=== PATIENT | male | born 1960 | race Caucasian/White ===

== ENCOUNTER → 2019-02-10 | Emergency (ER) | payer BC, OTHER ==
[~2019-02-10] MED LIST: Bacitracin 1 PK ONE; Cephalexin 250 MG CAP ONE; Lidocaine 1% PF 5 ML VIAL ONE; Lidocaine 1% w/Epinephrine 1:100K 30 ML VIAL ONE
== END ==
LOC: BURERS 16:06
DX: S11.91XA Laceration without foreign body of unspecified part of neck, initial encounter (principal); E78.5 Hyperlipidemia, unspecified; I10 Essential (primary) hypertension; W25.XXXA Contact with sharp glass, initial encounter
CPT/HCPCS: 12002; J2001

== ENCOUNTER 2021-05-17 13:12 | Emergency (ER) | payer BC ==
[2021-05-17 13:51] LABS: Bilirubin Negative (Negative); Blood, Urine Large (Negative); Clarity Cloudy (Clear); Glucose, Urine (Dipstick) Negative (Negative); Ketone, Urine Negative (Negative); Leukocyte Large (Negative); Nitrite Positive (Negative); Protein, Urine (Dipstick) > or equal to 300 mg/dL (Neg-Trace); Urobilinogen 0.2 mg/dL (Less than 2); pH, Urine 5.5 (5.0-9.0)
[2021-05-17 14:02] LABS: RBC/HPF 21-50 HPF (0-3)
[2021-05-17 14:03] LABS: Bacteria/HPF 1+ HPF (None Seen); Red Blood Cell Cast 0-3 LPF (None Seen); Squamous Epithelial 0-3 HPF (0-3); Transitional Epithelial 0-3 HPF (None Seen); WBC/HPF Greater than 50 HPF (0-3); White Blood Cell Cast 0-3 LPF (None Seen)
[2021-05-17] MEDS ORDERED: cefTRIAXone\\ROCEPHIN 2 GM VIAL ONE (14:39)
[2021-05-17] MEDS ORDERED: Sodium Chloride 0.9% 100 ML ONE (14:39)
[2021-05-18 10:52] LABS: Chlam.trachomatis by PCR,Urine Not Detected (NotDetected)
== END 2021-05-17 15:29 | disposition home or self-care (01) ==
LOC: BURERS 13:12
DX: N13.6 Pyonephrosis (principal); I10 Essential (primary) hypertension; E78.00 Pure hypercholesterolemia, unspecified; Z79.899 Other long term (current) drug therapy
CPT/HCPCS: 74176; 81003; 81015; 87077; 87086; 87186; 87491; 87591; 96365; J0696; J3490